=== PATIENT | female | born 1940 | race Caucasian/White ===

== ENCOUNTER 2022-03-10 08:54 | Emergency (ER) | payer MEDICARE, BC, SELFPAY ==
[2022-03-10 10:07] VITALS: BP 161/77; PULSE 68; RESP 18; TEMP 36.5; O2SAT 97; BMI 32.3
--- NOTE | 2022-03-10 10:15 | PC.NURSE ---
pt seen in triage room, was able to remove piece of ear tip easily, looked into ear with otoscope and unable to visualize any additional FB, TM clear and easily seen, pt denies any pain or feeling of FB, signs refusal and verbalizes that she does not need to see MD at this time, pt encouraged to return for further issues
--- NOTE | 2022-03-10 10:26 | ED_ITS ---
HPI - Ear Problem General Chief complaint: Unspecified Complaint, Adult Stated complaint: Hearing aid stuck in ear Time Seen by Provider: 03/10/22 10:09 Related Data Home Medications Medication Instructions Recorded Confirmed albuterol sulfate 90 mcg/actuation INHALATION 03/10/22 aerosol inhaler (Ventolin HFA) levothyroxine 125 mcg tablet mcg 03/10/22 (Synthroid) levothyroxine 137 mcg tablet mcg 03/10/22 (Synthroid) lisinopril 20 tab 03/10/22 mg-hydrochlorothiazide 25 mg tablet mometasone-formoterol HFA 100 INHALATION 03/10/22 mcg-5 mcg/actuation aerosol inhaler (Dulera) simvastatin 10 mg tablet mg 03/10/22 Allergies Allergy/AdvReac Type Severity Reaction Status Date / Time No Known Drug Allergies Allergy Verified 03/10/22 10:10 Exam Const: Vital Signs, click to edit/add: Vital Signs - 24 hr 03/10/22 10:07 Temperature 97.7 F Pulse Rate [Radial ] 68 Respiratory Rate 18 [facility] 161/77 H Pulse Oximetry 97 Course Vital Signs Vital signs: Initial Vital Signs Temperature 97.7 F 03/10/22 10:07 Temperature Source Temporal Artery Scan 03/10/22 10:07 Pulse Rate 68 03/10/22 10:07 Respiratory Rate 18 03/10/22 10:07 Blood Pressure 161/77 H 03/10/22 10:07 Blood Pressure Mean 105 03/10/22 10:07 Blood Pressure Position Sitting 03/10/22 10:07 Pulse Oximetry 97 03/10/22 10:07 Oxygen Delivery Method 03/10/22 10:07 Vital Signs Temperature 97.7 F 03/10/22 10:07 Pulse Rate 68 03/10/22 10:07 Respiratory Rate 18 03/10/22 10:07 Blood Pressure 161/77 H 03/10/22 10:07 Pulse Oximetry 97 03/10/22 10:07 Temperature 97.7 F 03/10/22 10:07 Pulse Rate 68 03/10/22 10:07 Respiratory Rate 18 03/10/22 10:07 Blood Pressure 161/77 H 03/10/22 10:07 Pulse Oximetry 97 03/10/22 10:07 Discharge Plan Discharge Clinical Impression: Foreign body Patient Disposition: Left Against Medical Advice Condition: Improved Additional Instructions: Patient was not seen by physician, only seen by nurse, decided not to be seen. Prescriptions: No Action levothyroxine [Synthroid] 137 mcg tablet 0RF Label Comments: TAKE 1 TABLET BY MOUTH EVERY OTHER DAY. ALTERNATE TAKING 125 MCG WITH 137 MCG EVERY OTHER DAY. simvastatin 10 mg tablet 0RF Label Comments: TAKE 1 TABLET BY MOUTH AT BEDTIME levothyroxine [Synthroid] 125 mcg tablet 0RF Label Comments: TAKE 1 TABLET BY MOUTH EVERY OTHER DAY ALTERNATE EVERY OTHER DAY WITH 137 MCG. lisinopril-hydrochlorothiazide 20-25 mg tablet 0RF Label Comments: TAKE 1 TABLET BY MOUTH ONCE DAILY albuterol sulfate [Ventolin HFA] 90 mcg/actuation HFA aerosol inhaler INHALATION 0RF Label Comments: INHALE 1 TO 2 PUFFS BY MOUTH EVERY 4 HOURS NEEDED FOR WHEEZING Dulera 100-5 mcg/actuation HFA aerosol inhaler INHALATION 0RF Label Comments: INHALE 2 PUFFS BY MOUTH TWICE DAILY. RINSE MOUTH/GARGLE AFTER EACH USE Follow Up/Referrals: Catherine Cardenas MD [Primary Care Provider] - Stand Alone Forms: Trulia Info Instructions
== END 2022-03-10 10:26 | disposition left against medical advice (07) ==
PROVIDERS: Emergency Provider Family Medicine; PCP Internal Medicine
DX: Z53.21 Procedure and treatment not carried out due to patient leaving prior to being seen by health care provider (principal)
CPT/HCPCS: 99281

== ENCOUNTER 2022-04-16 10:02 | Day surgery (SDC) | payer MEDICARE, BC, SELFPAY ==
[2022-04-16 10:13] VITALS: BP 198/94; PULSE 71; RESP 20; TEMP 36.2; O2SAT 98; BMI 32.1
--- NOTE | 2022-04-16 10:59 | ED.GENADULT ---
HPI - General Adult General Chief complaint: Laceration/Wound Stated complaint: Wound on RT knee needs to be checked Time Seen by Provider: 04/16/22 10:30 Source: patient Mode of arrival: ambulatory Limitations: no limitations History of Present Illness HPI narrative: 82-year-old female coming in today complaining of any injury. She fell about 25 days ago, and suffered a laceration to the anterior knee just distal to the patella. About 3 days after this occurred she went in to be seen. The wound has been healing by secondary intention since then has been doing fine. She did notice a increased odor in it about 9 days or so ago, she went into the urgent care and was placed on Keflex 500 mg p.o. b.i.d. for 7 days. Since then she has been doing fine however yesterday she noticed again and increased smell coming from the wound so she came in today to be evaluated. She denies any systemic symptoms. No knee pain. She does have an artificial knee on that side. Related Data Home Medications Medication Instructions Recorded Confirmed albuterol sulfate 90 mcg/actuation inhalation 03/10/22 04/04/22 aerosol inhaler (Ventolin HFA) mometasone-formoterol HFA 100 inhalation 03/10/22 04/04/22 mcg-5 mcg/actuation aerosol inhaler (Dulera) aspirin 81 mg capsule 81 mg PO QDAY 03/27/22 04/04/22 lactobacillus combination no.9 4 4,000 mmu cells PO QDAY 03/27/22 04/04/22 billion cell capsule (Adult 50 Plus Probiotic) levothyroxine 125 mcg tablet 125 mcg PO .every other day 03/27/22 04/04/22 (Synthroid) levothyroxine 137 mcg tablet 137 mcg PO .every other day 03/27/22 04/04/22 (Synthroid) lisinopril 20 1 tab PO QDAY 03/27/22 04/04/22 mg-hydrochlorothiazide 25 mg tablet vitamins A,C,R-ycro-qucamc 2,148 1 tab PO DAILY 03/27/22 04/04/22 mcg-113 mg-45 mg-17.4 mg tablet (PreserVision AREDS) Previous Rx's Medication Instructions Recorded simvastatin 10 mg tablet 10 mg PO QDAY #90 tabs 03/31/22 oxycodone-acetaminophen 5 mg-325 1 tab PO Q4-8H PRN pain #10 tabs 04/16/22 mg tablet (Percocet) Allergies Allergy/AdvReac Type Severity Reaction Status Date / Time No Known Drug Allergies Allergy Verified 04/01/22 12:02 Review of Systems Status of ROS: Reports: 10 or more systems reviewed and unremarkable except as noted in History and below [facility] Medical History History of DVT of lower extremity Surgical History History of laparoscopic appendectomy History of left breast biopsy History of total knee replacement Peritoneal abscess Social History Smoking Status: Former smoker Do you use any of these nicotine containing products: None Second hand tobacco smoke exposure: No Non-prescribed substance use: denies use Exam Narrative: Exam Narrative: Overweight, well-developed patient in no acute distress. Alert and oriented. Answers questions appropriately. Mood and affect are appropriate. Thoughts are goal oriented and rational. No tangential or magical thinking noted. Patient speaks in full sentences without needing to catch their breath. HEENT: Normocephalic atraumatic. Pupils are equally round reactive to light. Extraocular muscles are intact. Conjunctivae are moist without any icterus noted. Extremities: Patient has a 1.5 cm open wound just distal and lateral to the patella, lateral to the patellar tendon. Exploration of the wound with a Q-tip reveals that it is approximately an inch deep medially. It has a very strong odor, dark malodorous discharge present. Const: Vital Signs, click to edit/add: Vital Signs - 24 hr 04/16/22 10:13 Temperature 97.2 F L Pulse Rate [Right Pulse Oximeter] 71 Respiratory Rate 20 Blood Pressure [Le ft Upper Arm] 198/94 H Pulse Oximetry 98 Oxygen Delivery Me thod Room Air Course Course Hospital Course: Discussed case with orthopedic surgery. Reevaluation(s) Reevaluation #1: I do believe this patient needs a wound washout, orthopedic surgery in agreement. Patient will be admitted to same-day surgery for procedure. Vital Signs Vital signs: Initial Vital Signs Temperature 97.2 F L 04/16/22 10:13 Temperature Source Temporal Artery Scan 04/16/22 10:13 Pulse Rate 71 04/16/22 10:13 Respiratory Rate 20 04/16/22 10:13 Blood Pressure 198/94 H 04/16/22 10:13 Blood Pressure Mean 128 04/16/22 10:13 Blood Pressure Position Sitting 04/16/22 10:13 Pulse Oximetry 98 04/16/22 10:13 Oxygen Delivery Method 04/16/22 10:13 Vital Signs Temperature 97.2 F L 04/16/22 10:13 Pulse Rate 71 04/16/22 10:13 Respiratory Rate 20 04/16/22 10:13 Blood Pressure 198/94 H 04/16/22 10:13 Pulse Oximetry 98 04/16/22 10:13 Oxygen Delivery Method 04/16/22 10:13 Temperature 97.2 F L 04/16/22 10:13 Pulse Rate 71 04/16/22 10:13 Respiratory Rate 20 04/16/22 10:13 Blood Pressure 198/94 H 04/16/22 10:13 Pulse Oximetry 98 04/16/22 10:13 Oxygen Delivery Method 04/16/22 10:13 Medical Decision Making MDM Narrative Medical decision making narrative: Wound of the lower leg, just distal to the knee joint. Patient will will go to same-day surgery for a wound washout with orthopedic surgeon. Lab Data Labs: Lab Results 04/16/22 Range/Units 11:30 SARS-CoV-2 (PCR) Negative SARS-CoV-2 (Negative) Discharge Plan Discharge Clinical Impression: Open wound Condition: Stable Activity Detail: Weightbear as tolerated operative extremity Crutch or walker ambulation assistance as needed Straight leg raises daily; 1-2 sets of 10 reps Elevate operative extremity Remove dressing on postop day 3, or if saturated. If drainage still present, replace with new dry dressing. Ice to operative extremity: 20 minutes on, 20 minutes off-repeat while awake Tylenol and or ibuprofen variant as tolerated for pain Narcotics as needed for pain; a stool softener is recommended while taking narcotics (such as Senna-S) Discharge Diet: Regular
--- NOTE | 2022-04-16 11:24 | ED.NURSE ---
Dr Edward in to see pt.
--- NOTE | 2022-04-16 11:58 | P.ORCN_ITS ---
History of Present Illness HPI Date Seen: 04/16/22 Chief complaint: Wound on RT knee needs to be checked Narrative: 82-year-old female who walked into the emergency room today reports a right leg wound with drainage. This all started 25 days ago when she tripped and fell and scraped her right leg near the tibial tubercle level of the leg. It was a transverse/horizontal superficial laceration at the time. She had a picture on her phone she showed. The next day this developed a hematoma more so on the anterolateral portion of this proximal right leg. In the days to follow, she thought it got better over time. Unfortunately, a small wound then opened up. About 3 days after this occurred she went in to be seen.? The wound has been healing by secondary intention since then has been doing fine.? Fortunately, She did notice a increased odor in it about 9 days or so ago, she went into the urgent care and was placed on Keflex 500 mg p.o. b.i.d. for 7 days.? Since then she has been doing slightly better. However, yesterday she noticed again an increased foul oder coming from the wound so she came in today to be evaluated.? She denies any systemic symptoms.? No knee pain.? She does bilateral TKA (~1996). Of note, the left TKA sounds like it has some skin breakdown immediately postop that required some tissue manipulation. Otherwise, no devin infections about the knees reported. Review of Systems Narrative: No fevers or chills. No numbness or tingling. No chest pain shortness of breath. No blurred vision double vision headaches. No easy bleeding or bruising. No clotting disorders. She is not on any blood thinners. Mentation is intact. Remaining [facility] Medical History History of DVT of lower extremity Surgical History History of laparoscopic appendectomy History of left breast biopsy History of total knee replacement Peritoneal abscess Social History Smoking Status: Former smoker Do you use any of these nicotine containing products: None Second hand tobacco smoke exposure: No Non-prescribed substance use: denies use Meds Home Medications and Allergies Home Medications Medication Instructions Recorded Confirmed Type albuterol sulfate 90 mcg/actuation inhalation 03/10/22 04/04/22 History aerosol inhaler (Ventolin HFA) mometasone-formoterol HFA 100 inhalation 03/10/22 04/04/22 History mcg-5 mcg/actuation aerosol inhaler (Dulera) aspirin 81 mg capsule 81 mg PO QDAY 03/27/22 04/04/22 History lactobacillus combination no.9 4 4,000 mmu cells PO QDAY 03/27/22 04/04/22 History billion cell capsule (Adult 50 Plus Probiotic) levothyroxine 125 mcg tablet 125 mcg PO .every other day 03/27/22 04/04/22 History (Synthroid) levothyroxine 137 mcg tablet 137 mcg PO .every other day 03/27/22 04/04/22 History (Synthroid) lisinopril 20 1 tab PO QDAY 03/27/22 04/04/22 History mg-hydrochlorothiazide 25 mg tablet vitamins A,C,H-ozgd-orkwoj 2,148 1 tab PO DAILY 03/27/22 04/04/22 History mcg-113 mg-45 mg-17.4 mg tablet (PreserVision AREDS) Allergies Allergy/AdvReac Type Severity Reaction Status Date / Time No Known Drug Allergies Allergy Verified 04/01/22 12:02 Ortho Exam Narrative Exam Narrative: Well-developed, well-nourished, 82-year-old female in no acute distress. She is obese showing a BMI of 32.1 based on the metrics of this electronic medical chart. She is cooperative with the exam today. Interactive. Provides the history. Exam the right leg shows no erythema or induration or effusions about the knee itself. There is some mild erythema around the anterolateral proximal leg. This is roughly at the level of the tibial tubercle or just slightly distal. There is evidence of a transverse healed scar likely related to the scraped that she describes from the fall 25 days ago. However there is a 1.5 cm ovoid shaped opening/hole on the anterolateral proximal leg at this level. There is active drainage. Mild foul odor to it today. The drainage is serous in nature with slight cloudy appearance. 2+ edema to the proximal leg on this right side. Only 1+ on the contralateral leg. Palpable DP and PT pulse. Neurologic intact all 5 dermatomes/myotomes right lower extremity otherwise. Able to do an active straight leg raise without pain. Knee ROM shows 0-105 degrees at least pain-free. Is there is some tenderness palpation around the wound. Const Vital Signs, click to edit/add: Vital Signs - 24 hr 04/16/22 10:13 Temperature 97.2 F L Pulse Rate [Right Pulse Oximeter] 71 Respiratory Rate 20 Blood Pressure [Left Upper Arm] 198/94 H Pulse Oximetry 98 Oxygen Delivery Method Room Air Results Diagnostic results Additional Comments: No radiographs are available for review at this time. Assessment and Plan Assessment and plan (1) Open wound: Status: Acute (2) Status post bilateral knee replacements: Status: Acute Plan At this time, the open wound is concerning for a superficial infection. It is likely that she has a component of an abscess however given the purulence and foul odor. The concern is primarily related to the right TKA implants that she has. This puts her at increased risk for septic arthritis cord in the. I think it is important to obtain tissue and cultures of the wound. They may come back. The negative due to the Keflex/antibiotics that she has been on. He also might come back positive as the skin tenzin may simply be what is swabbed. However, I think a thorough debridement is also prudent. We discussed the risks, benefits, and alternatives. She, and her daughter state understanding. I do think this is ascencio to do sooner than later. Thus, as she has only drank some coffee early this morning, I think it is reasonable to do this time. I have communicated with our anesthesia team as well as the operating crew. We will plan for this irrigation and debridement momentarily. Following the procedure, I do think that she will be able to go home. Weightbear as tolerated. Range of motion as tolerated. I would encourage Jay hose stockings/compressive stockings. And finally, I would offer her 7 days of Bactrim. I think this antibiotic will be able to more broad-spectrum then Keflex helping cover possible MRSA. It will also be easier to take just twice a day rather than the prescribed 4 times a day it should be used for Keflex. Thank you for allowing me to participate in care of this patient today.
[2022-04-16 12:10] LABS: SARS PCR* Negative SARS-CoV-2 (Negative)
[2022-04-16] MEDS: LACTATED RINGERS 1000 ML 1,000 ML 100 ML IV (12:19)
[2022-04-16] MEDS: BUPIVACAINE 0.5 % 10 ML VIAL INJECTION (13:11)
--- NOTE | 2022-04-16 13:27 | P.ORPRC_ITS ---
Procedure Note Date of procedure: 04/16/22 Procedure: PREOPERATIVE DIAGNOSIS: 1. Right anterior proximal leg traumatic wound 2. Status post right TKA (approximately 1996) POSTOPERATIVE DIAGNOSIS: 1. Right anterior proximal leg traumatic wound. Measurements of open wound are 1.5 x 2.5 x 1.5 (wide, long, deep). The tunneling/undermining tracks a total of 8 cm toward the midline of the knee PROCEDURE: 1. Right anterolateral proximal leg traumatic wound irrigation and debridement including debridement of subcutaneous tissue. 2. Application of negative pressure dressing/wound VAC with sponge placed in the undermining/tunneling portion. Sponge involved proximally 7 x 1.5 x 2.5 cm SURGEON: Jason Rodriguez MD. HEALTH DIAGNOSTICS TEACHER: Alysha Gallardo PA-C - Of note, an property management assistant was critical for this case to aid in patient positioning, tissue retraction, limb manipulation/positioning, and closure. ANESTHESIA: Mac + local anesthetic (50:50 mixture of 1% lidocaine with epinephrine and 0.5% Marcaine plain)-15 mL total local anesthetic IMPLANTS: None TOURNIQUET: None COMPLICATIONS: None evident INDICATIONS: The patient is a pleasant 82-year-old female who tripped from a standing height and scraped the anterior portion of her proximal leg near the level of the tibial tubercle. The following day she developed a hematoma deep to this portion. In the coming weeks, there was a small cavitary lesion that the informed of the anterolateral proximal leg. She was seen in prescribed oral Keflex b.i.d.. This seemed to help a little bit, but once that stopped, the wound persisted and now had drainage with a foul odor. She presented [facility] today. Orthopedics is consulted to assist with management. Upon my evaluation, given the fact that she also has a history of a TKA open his proximally 1996) on this side, there was concern for this tracking deep and possibly into the joint. While physical exam did not have pain around the joint nor effusion, of course this could be early penetration into the joint. Thus, surgery was indicated to debride wound, obtain cultures, and evaluate the depths of the wound. DESCRIPTION OF PROCEDURE: Following a thorough discussion of risks, benefits, and alternatives consent was obtained and the operative extremity was marked. The patient was brought to the operating room and placed supine on the operating table. No antibiotics were administered initially as we wanted to obtain cultures. Thus, after proper time-out including proper patient, site, procedure, sterile ChloraPre prep was performed. Upper extremity was prepped and draped in appropriate sterile fashion. Initially, a Ray-Rachelle allowed us to debride the superficial layers in the wound. I then used a culture and found that this tracked more towards the midline anteriorly. This culture swab was sent for aerobic and anaerobic cultures. Beyond that, the wound continued debridement with a curette of the subcutaneous tissue. Ray-Rachelle was also utilized to help mechanically debride the deep surface. We found the measurements of the depth of tunneling/tracking is noted. Thorough irrigation normal saline was performed. Curette again was performed followed by suction and again thorough irrigation. 3 L normal saline was performed through this small opening. At this stage, given the tunneling and the drainage, it was felt that a wound VAC for home use would be prudent. Thus, the wound VAC sponge was inserted into the tunneling portion approximately 2/3-3/4 the depth, and the seal completed. The VAC via device was utilized for the patient's home use. She was woken from anesthesia and transferred to the recovery room stable condition. PLAN: 1. Encourage elevation of the operative extremity. 2. Range of motion of the operative extremity/digits as tolerated. 3. Ibuprofen, acetaminophen and/or Percocet as needed for pain. 4. Follow up with me on 04/18/2022. VAC and wound check. Possible return to operating room the following day on 04/19/2022. 5. We have prescribed oral Bactrim DS and ciprofloxacin. Both should be taken b.i.d. x7 days.
[2022-04-16 13:29] VITALS: BP 102/39; PULSE 91; RESP 16; TEMP 35.7; O2SAT 96
--- NOTE | 2022-04-16 13:35 | W.ANESCHARGE ---
Anesthesia Charges Start Date/Time Anesthesia Start Date: 04/16/22 Anesthesia Start Time: 12:39 Stop Date/Time Anesthesia Stop Date: 04/16/22 Anesthesia Stop Time: 13:32 Summary Emergency: Yes Extremes of Age: Over 71-CPT 76504
[2022-04-16 13:45] VITALS: BP 98/45; PULSE 90; RESP 16; O2SAT 95
[2022-04-16 14:00] VITALS: BP 114/56; PULSE 93; RESP 18; TEMP 35.9; O2SAT 96
[2022-04-16 14:15] VITALS: BP 106/55; PULSE 90; RESP 16; O2SAT 94
[2022-04-16 14:30] VITALS: BP 105/65; PULSE 92; RESP 16; TEMP 36.2; O2SAT 94
== END 2022-04-16 15:00 | disposition home or self-care (01) ==
LOC: ED 11:11 → SS 11:59
PROVIDERS: Emergency Provider Family Medicine; PCP Internal Medicine; Visit Provider Orthopaedic Surgery Sports Medicine
PROC: (CPT 10061; principal; 2022-04-16 12:35)
DX: S81.001A Unspecified open wound, right knee, initial encounter (principal); S80.01XA Contusion of right knee, initial encounter; L02.415 Cutaneous abscess of right lower limb; W01.0XXA Fall on same level from slipping, tripping and stumbling without subsequent striking against object, initial encounter; Z96.653 Presence of artificial knee joint, bilateral
CPT/HCPCS: 10061; 97605; 400; 87186; 87205; 87635; 99100; 99140; 99283; J0360; J1100; J1885; J2405; J2704; J3010; J3490; J7120; S0020

== ENCOUNTER 2022-04-19 05:54 | Day surgery (SDC) | payer MEDICARE, BC, SELFPAY ==
[2022-04-19 06:18] VITALS: BMI 35.4
[2022-04-19 06:44] VITALS: BP 133/66; PULSE 76; RESP 18; TEMP 36.7; O2SAT 94
[2022-04-19] MEDS: LACTATED RINGERS 1000 ML 1,000 ML 100 ML IV ×2 (07:13→08:03)
[2022-04-19] MEDS: SODIUM CHLORIDE 0.9 % (FLUSH) 10 ML SYRINGE IVF (07:14)
[2022-04-19] MEDS: BUPIVACAINE 0.5% 30 ML 10 ML INJECTION (07:31)
[2022-04-19 07:52] VITALS: BP 92/37; PULSE 74; RESP 16; TEMP 36.3; O2SAT 98
--- NOTE | 2022-04-19 07:52 | PM.ORPRC ---
Procedure Note Date of procedure: 04/19/22 Procedure: PREOPERATIVE DIAGNOSIS:? 1.? Right anterior proximal leg traumatic wound 2. Right anterolateral proximal leg retained wound VAC 3.? Status post right TKA (approximately 1996) POSTOPERATIVE DIAGNOSIS: 1.? Right anterior proximal leg traumatic wound (wound now measures 1 x 1 x 2 cm (wide, long, deep, respectively). Tunneling/undermining now tracks a total of 3 cm toward the midline of the knee 2. Right anterolateral proximal leg retained wound VAC 3.? Status post right TKA (approximately 1996) PROCEDURE: 1.? Right anterolateral proximal leg traumatic wound irrigation and excisional debridement including debridement of skin and subcutaneous tissue.? 2.? Application of negative pressure dressing/wound VAC with sponge placed in the undermining/tunneling portion.? Sponge involved proximally 3 x 1 x 2cm for SURGEON: ? Jason Rodriguez MD. COMPUTER TECHNOLOGY TEACHER:? Isaias DICKINSON- Of note, an payroll administrative assistant was critical for this case to aid in patient positioning, tissue retraction, limb manipulation/positioning, and closure. ANESTHESIA:? Mac + local anesthetic (50:50 mixture of 1% lidocaine with epinephrine and 0.5% Marcaine plain)-20 mL total local anesthetic IMPLANTS:? None TOURNIQUET:? None COMPLICATIONS:? None evident INDICATIONS:? The patient is a pleasant 82-year-old female who tripped from a standing height and scraped the anterior portion of her proximal leg near the level of the tibial tubercle.? The following day she developed a hematoma deep to this portion.? She was brought to the operating room [id number]. Here the wound was initially debrided and deep abscess drained. Wound VAC was applied. There was significant tunneling underneath the skin. Now, the tunneling is substantially decreased yet the wound still remains to have a slight tunneling. Thus, surgery was indicated to debride wound and evaluate the depths of the wound.? DESCRIPTION OF PROCEDURE:? Following a thorough discussion of risks, benefits, and alternatives consent was obtained and the operative extremity was marked.? The patient was brought to the operating room and placed supine on the operating table.? 2 g IV Ancef were administered within 1 hour incision preoperatively.? Thus, after proper time-out including proper patient, site, procedure, sterile ChloraPre prep was performed.? Upper extremity was prepped and draped in appropriate sterile fashion using ChloraPrep. Initially, a Ray-Rachelle allowed us to debride the superficial layers in the wound. Beyond that, the wound continued debridement with a curette of the skin and subcutaneous tissue.? Ray-Rachelle was also utilized to help mechanically debride the deep surface.? We found the measurements of the depth of tunneling/tracking is noted.? Thorough irrigation normal saline was performed.? Curette again was performed followed by suction and again thorough irrigation.? 3 L normal saline was performed through this small opening. At this stage, given the tunneling and the drainage, it was felt that a wound VAC for home use would still be prudent.? Thus, the wound VAC sponge was inserted into the tunneling portion approximately 2/3-3/4 the depth, and the seal completed.? The VAC via device was utilized for the patient's home use.? She was awoken from anesthesia and transferred to the recovery room stable condition. PLAN:? 1.? Encourage elevation of the operative extremity. 2.? Range of motion of the operative extremity/digits as tolerated. 3.? Ibuprofen, acetaminophen and/or Percocet as needed for pain. 4.? Follow up PA visit 04/20/2022 for wound VAC sponge change.? She is scheduled to be in the wound clinic next week, 04/26/2022 5. We have prescribed oral Bactrim DS and ciprofloxacin.? Both should be taken b.i.d. x7 days. Complete this prescription.
--- NOTE | 2022-04-19 07:54 | W.ANESCHARGE ---
Anesthesia Charges Start Date/Time Anesthesia Start Date: 04/19/22 Anesthesia Start Time: 07:15 Stop Date/Time Anesthesia Stop Date: 04/19/22 Anesthesia Stop Time: 07:52 Summary Emergency: No Extremes of Age: Over 71-CPT 23382
[2022-04-19 08:15] VITALS: BP 87/62; RESP 16; O2SAT 99
[2022-04-19 08:30] VITALS: BP 125/65; PULSE 74; RESP 16; TEMP 36.6; O2SAT 96
[2022-04-19 09:00] VITALS: BP 120/62; PULSE 74; RESP 16; O2SAT 97
--- NOTE | 2022-04-19 17:12 | SUR.OPER ---
PATIENT QUESTIONS ANSWERED SATISFACTORILY PREOPERATIVELY.? PATIENT BROUGHT TO OR #2 PER CART.? Patient positioned supine on OR #2 bed.?The perioperative?team supported arms bilaterally on arm boards.? Final approval of positioning by surgeon.?
== END 2022-04-19 09:21 | disposition home or self-care (01) ==
PROVIDERS: PCP Internal Medicine; Visit Provider Orthopaedic Surgery Sports Medicine
PROC: (CPT 11042; principal; 2022-04-19 07:15)
DX: S80.01XA Contusion of right knee, initial encounter (principal); S89.81XA Other specified injuries of right lower leg, initial encounter
CPT/HCPCS: 11042; 97606; 00400; 99100; J1100; J2405; J2704; J3010; J3490; J7120

== ENCOUNTER 2022-04-21 14:45 | Outpatient (CLI) | payer MEDICARE, BC, SELFPAY | END 2022-04-21 14:46 | disposition home or self-care (01) | PROVIDERS: PCP Internal Medicine; Visit Provider Nurse Practitioner Family | DX: S80.11XA Contusion of right lower leg, initial encounter (principal); W01.0XXA Fall on same level from slipping, tripping and stumbling without subsequent striking against object, initial encounter; I87.311 Chronic venous hypertension (idiopathic) with ulcer of right lower extremity; L97.809 Non-pressure chronic ulcer of other part of unspecified lower leg with unspecified severity; I87.2 Venous insufficiency (chronic) (peripheral) | CPT/HCPCS: 11042; 99212 ==

== ENCOUNTER 2022-04-25 14:43 | Outpatient (CLI) | payer MEDICARE, BC, SELFPAY | END 2022-04-25 14:44 | disposition home or self-care (01) | LOC: WOUND 14:44 | PROVIDERS: PCP Internal Medicine; Visit Provider Nurse Practitioner Family | DX: S80.11XA Contusion of right lower leg, initial encounter (principal); I87.2 Venous insufficiency (chronic) (peripheral); L97.819 Non-pressure chronic ulcer of other part of right lower leg with unspecified severity | CPT/HCPCS: 11042 ==

== ENCOUNTER 2022-05-02 11:30 | Outpatient (CLI) | payer MEDICARE, BC, SELFPAY | END 2022-05-02 11:31 | disposition home or self-care (01) | LOC: WOUND 11:30 | PROVIDERS: PCP Internal Medicine; Visit Provider Nurse Practitioner Family | DX: S80.11XA Contusion of right lower leg, initial encounter (principal); I87.2 Venous insufficiency (chronic) (peripheral) | CPT/HCPCS: 11042 ==

== ENCOUNTER 2022-05-09 13:07 | Outpatient (CLI) | payer MEDICARE, BC, SELFPAY | END 2022-05-09 13:08 | disposition home or self-care (01) | PROVIDERS: PCP Internal Medicine; Visit Provider Nurse Practitioner Family | DX: S80.11XA Contusion of right lower leg, initial encounter (principal); I87.2 Venous insufficiency (chronic) (peripheral); L97.819 Non-pressure chronic ulcer of other part of right lower leg with unspecified severity | CPT/HCPCS: 11042 ==

== ENCOUNTER 2022-05-16 11:15 | Outpatient (CLI) | payer MEDICARE, BC, SELFPAY | END 2022-05-16 11:16 | disposition home or self-care (01) | LOC: WOUND 11:15 | PROVIDERS: PCP Internal Medicine; Visit Provider Nurse Practitioner Family | DX: S80.11XA Contusion of right lower leg, initial encounter (principal); I87.2 Venous insufficiency (chronic) (peripheral) | CPT/HCPCS: 11042 ==

== ENCOUNTER 2022-05-23 11:12 | Outpatient (CLI) | payer MEDICARE, BC, SELFPAY | END 2022-05-23 11:13 | disposition home or self-care (01) | LOC: WOUND 11:13 | PROVIDERS: PCP Internal Medicine; Visit Provider Nurse Practitioner Family | DX: S80.11XA Contusion of right lower leg, initial encounter (principal); I87.2 Venous insufficiency (chronic) (peripheral) | CPT/HCPCS: 11042 ==

== ENCOUNTER 2022-06-06 11:23 | Outpatient (CLI) | payer MEDICARE, BC, SELFPAY | END 2022-06-06 11:24 | disposition home or self-care (01) | PROVIDERS: PCP Internal Medicine; Visit Provider Nurse Practitioner Family | DX: S80.11XA Contusion of right lower leg, initial encounter (principal); I87.2 Venous insufficiency (chronic) (peripheral) | CPT/HCPCS: 99212 ==

== ENCOUNTER 2022-08-24 14:21 | Outpatient (CLI) | payer MEDICARE, BC, SELFPAY ==
[2022-08-24 12:58] LABS: Chloride* 105 mmol/L (96-114); Sodium* 138 mmol/L (135-149)
[2022-08-24 13:00] LABS: Cholesterol* 190 mg/dL (90-199); Creatinine* 0.5 mg/dL (0.5-1.5); Estimated Glomerular Filt Rate 94 ml/min
[2022-08-24 13:01] LABS: Blood Urea Nitrogen* 15 mg/dL (7-30); Calcium* 9.8 mg/dL (8.4-10.6); Carbon Dioxide* 28 mmol/L (20-32); Glucose* 110 mg/dL (60-115); HDL Cholesterol* 88 mg/dL (>=50); LDL Cholesterol Calculated 87 mg/dL (<100); Triglycerides* 76 mg/dL (40-149)
== END 2022-08-24 14:22 | disposition home or self-care (01) ==
PROVIDERS: PCP Internal Medicine; Visit Provider Internal Medicine
DX: I10 Essential (primary) hypertension (principal); E78.5 Hyperlipidemia, unspecified; E03.9 Hypothyroidism, unspecified
CPT/HCPCS: 80048; 80061; 84443

== ENCOUNTER 2023-09-13 11:25 | Outpatient (CLI) | payer MEDICARE, BC, SELFPAY ==
--- OUTSIDE RECORDS SUMMARY | 2023-09-13 11:33 | XMS_ITS | Continuity of Care Document ---
Author Name Unknown Organization [facility] Address [address] [place] [address] Phone Care Team Providers Care Beauty Parlor Cleaner Name Role Phone RN, RN Unavailable Unavailable [...] Ju Inj Anes Facet Jt; Lumb/sac-3rd Level Inj Anes Facet Jt; Lumb/sac-1st Level Inj Anes Facet Jt; Lumb/sac-2nd Level Ju Inj Anes Facet Jt; Lumb/sac-3rd Level Inj Anes Facet Jt; Lumb/sac-1st Level Inj Anes Facet Jt; Lumb/sac-2nd Level Inj Anes Facet Jt; Lumb/sac-3rd Level Marcaine 30ml Lo Osm Contr Mat (200-249mg) Advance Directives Directive Yes / No Effective Date File Name No Information Encounters Encounter Description Practice Location Reason(s) For Visit Diagnoses Date Provider Providers Copied on Encounter [facility], [address], [place], [id number], tel:[phone] [facility] No Information RN RN. [address], [address], [place], [place], [address], [place]. tel:[phone] Referring Provider: Vlad SORENSON R, [address], [place], [address] . tel:[phone] [facility], [address], [place], [address], tel:[phone] [facility] No Information Dario Roth. [address], [place], [place], [address], [place]. tel:[phone] Referring Provider: Vlad SORENSON R, [address], [place], [address] . tel:[phone] [facility], [address], [place], [place], [address], [place] tel:[phone] [facility] No Information RN RN. [address], [facility] [place], [address], [place]. tel:[phone] Referring Provider: Vlad SORENSON R, [address], [facility] [place], [address] . tel:[phone] [facility], [address], [place], [place], [address], [place] tel:[phone] [facility] No Information Dario Roth. [address], [place], [place], [address], [place]. tel:[phone] Referring Provider: Vlad SORENSON R, [address], [place], [address] . tel:[phone] [facility], [address], [place], [address], [place] tel:[phone] [facility] No Information Dario Roth. [address], [place], [place], [address], [place]. tel:[phone] Referring Provider: Vlad SORENSON R, [address], [place], [address] . tel:[phone] [facility], [address], [place], [place], [address], [place] tel:[phone] [facility] No Information Dario Roth. [address], [place], [place], [address], [place]. tel:[phone] Referring Provider: Vlad SORENSON R, [address], [place], [address] . tel:[phone] Family History Family Member Type Diagnosis Age At Onset No Information Payers Payer name Insurance type Covered alliance party ID Authorjohnny huerta(s) Devon BUCK [id number] Social History Type Description Quantity Date Captured [...]
== END 2023-09-13 11:26 | disposition home or self-care (01) ==
PROVIDERS: PCP Internal Medicine; Visit Provider Internal Medicine
DX: E03.9 Hypothyroidism, unspecified (principal); E78.5 Hyperlipidemia, unspecified; I10 Essential (primary) hypertension
CPT/HCPCS: 80048; 80061; 84443

== ENCOUNTER 2024-08-12 12:30 | Outpatient (RCR) | payer MEDICARE, BC, SELFPAY ==
--- NOTE | 2024-05-28 14:42 | PT.OPE ---
PT [facility] Outpatient Eval PT [facility] Outpatient Eval Start: 05/28/24 14:26 Freq: Status: Active Protocol: Document 05/28/24 14:26 LEIGH (Rec: 05/28/24 14:39 [facility] [id number]) E-signed By Nathaniel Thornton, PT, ATC Physical Therapy Outpatient Evaluation Insurance Information Insurance Name Medicare B Medical Diagnosis M54.50 low back pain, unspecified M48.00 spinal stenosis, Treating Diagnosis low back pain, right Referring Catherine Oconnor MD Subjective Subjective Edwige is an 85 year old who has experienced lower back discomfort x 2 years. Feels the symptoms have worsened lately making standing and walking more difficult. She ultimately fears falling. She says her standing duration is <5 min.s while walking is <10 min.s unless she has something to lean upon (walker, shopping cart) or contact guard assist with someone next to her. Sitting always takes her back pain away. She denies an LE weakness, paresthesia or loss of sensation. Pain Comments 02/19 worst Date of Last Physician Visit 05/22/24 Current Work Status Retired Precautions Therapy Limitations/Systems Review Not Limited Objective Range of Motion Trunk ROM WNL's, no lbp produced with any motion. Hip flexor and quadricep muscle tightness and flexibility deficits exist bilaterally. Strength LE R and L: 5/5 for all joints and their respective patterns . Palpation Mild tenderness along the lumbar paraspinal muscles and R SI joint. Balance & Gait Walks using obvious caution, absent UE swing or trunk rotation. Posture Stands with in a forward flexed position with increased lumbar lordosis. Sensation/Reflexes Diminished bilaterally through patella and achilles tendons. Assessment Assessment/Impression Edwige is a very pleasant woman experiencing lower back symptoms attributed to degeneration-stenosis. Associated factors include trunk/abdominal weakness, hip weakness and tight iliopsoas and quadricep musculature. She would benefit from skilled PT for exercise program development, passive stretching, [id number] strengthening and guidance with assistive device selection and usage. I have also suggested she purchase a lumbar support to be used with all upright positions. Primary Functional Limitations standing walking ADL's Plan of Care Rehabilitation Potential Good Physical Therapy Goals 1.Independent performance with HEP for stretching and strengthening. 2.Improve standing duration to 10 min.s while preparing meals. 3.To walk x 15 min.s without assistive device without limiting lbp. 4.Improve flexibility-soft tissue stretch in both hip flexor and quad muscle groups. Coordination/Communication With Referral Source Treatment Plan/Direct Interventions Gait Training,Manual Therapy, Orthotics/Braces,Self-Care/ Home Management,Therapeutic Activities,Therapeutic Exercises Frequency/Duration 1-2x per week 6-12 weeks Patient Will Be Discharged From Therapy Independent w/HEP, Independently Progressing Evaluation Billing Untimed Code Treatment Minutes 30 PT Eval No Charge No Complexity Low Certification Information Initial Certification Date 05/28/24 Ending Certification Date 08/28/24 Provider Signature Required Yes Provider Signature Shows Agreement With POC & Medical Necessity Physician NPI Number Write NPI# Here Physician Comment/Change : Physician Signature & Date Requested Please Sign/Date Here
== END 2024-08-12 13:30 | disposition home or self-care (01) ==
PROVIDERS: PCP Internal Medicine; Visit Provider Internal Medicine
DX: M54.50 Low back pain, unspecified (principal); M48.00 Spinal stenosis, site unspecified; Z51.89 Encounter for other specified aftercare
CPT/HCPCS: 97110; 97140; 97161

== ENCOUNTER 2024-09-23 10:44 | Outpatient (CLI) | payer MEDICARE, BC, SELFPAY | END 2024-09-23 10:45 | disposition home or self-care (01) | PROVIDERS: PCP Internal Medicine; Visit Provider Internal Medicine | DX: E78.5 Hyperlipidemia, unspecified (principal); E03.9 Hypothyroidism, unspecified; I10 Essential (primary) hypertension | CPT/HCPCS: 80048; 80061; 84443 ==

== ENCOUNTER 2025-02-17 10:15 | Outpatient (RCR) | payer MEDICARE, BC, SELFPAY | END 2025-06-17 23:59 | disposition home or self-care (01) | PROVIDERS: PCP Internal Medicine; Visit Provider Family Medicine | DX: M47.816 Spondylosis without myelopathy or radiculopathy, lumbar region (principal); Z51.89 Encounter for other specified aftercare | CPT/HCPCS: 97110; 97140; 97161 ==

== ENCOUNTER 2025-05-22 22:01 | Emergency (ER) | payer MEDICARE, BC, SELFPAY ==
--- OUTSIDE RECORDS SUMMARY | 2013-04-22 08:57 | XMS_ITS | Continuity of Care Document ---
Author Organization [facility] Address [address] [place] [address] Phone Care Team Providers Care Workers Compensation Consultant Name Role Phone RN, RN Unavailable Unavailable Allergies, Adverse Reactions, Alerts Substance Reaction Status Criticality No Known allergies Medications Medication Instructions Dosage Effective Dates (start - stop) Status Comments amlodipine 2.5 mg tablet take 1 tablet by oral route every day 2.5 MG - Active Os-Param 500 + D 500 mg (1,250 mg)-200 unit tablet take 1 Tablet by Oral route every day 1 Tablet - Active Vitamin D3 1,000 unit capsule take 1 Capsule by Oral route every day 1 Capsule - Active Levoxyl 150 mcg tablet take 1 tablet by oral route every day 150 MCG - Active lisinopril-hydrochl orothiazide 20 mg-25 mg tablet take 1 tablet by oral route every day 1.00 tablet - Active mometasone-formoter ol HFA 100 mcg-5 mcg/actuation Aerosol Inhaler inhale 2 puff by inhalation route 2 times every day in the morning and evening 2.00 puff - Active Zocor 10 mg tablet take 1 tablet by ora l route every day in the evening 10 MG - Active Procedures Procedure Date RF Lumbar/Sacral Single Level 3 RF Lumbar/Sacral Addtl Level Mod cs by same phys, 5 yrs + Lactate Ringers 1000 Inj Anes Facet Jt; Lumb/sac-1st Level Ju Inj Anes Facet Jt; Lumb/sac-2nd Level Ju Inj Anes Facet Jt; Lumb/sac-3rd Level Ju Inj Anes Facet Jt; Lumb/sac-1st Level Ju Inj Anes Facet Jt; Lumb/sac-2nd Level Ju Inj Anes Facet Jt; Lumb/sac-3rd Level Ju Inj Anes Facet Jt; Lumb/sac-1st Level Ju Inj Anes Facet Jt; Lumb/sac-2nd Level Inj Anes Facet Jt; Lumb/sac-3rd Level Marcaine 30ml Lo Osm Contr Mat (200-249mg) Advance Directives Directive Yes / No Effective Date File Name No Information Encounters Encounter Description Practice Location Reason(s) For Visit Diagnoses Date Provider Providers Copied on Encounter [facility], [address], [place], [place], [id number], tel:[phone] [facility] No Information RN RN. [address], [place], [place], [address], [place]. tel:[phone] Referring Provider: Vlad Adan, [address], [place], [address] . tel:[phone] [facility], [address], [place], [place], [address], tel:[phone] [facility] No Information Dario Roth. [address], [place], [place], [address], [place]. tel:[phone] Referring Provider: Vlad Adan, [address], [place], [address] . tel:[phone] [facility], [address], [place], [place], [address], [place] tel:[phone] [facility] No Information RN RN. [address], [facility] [place], [address], [place]. tel:[phone] Referring Provider: Vlad SORENSON R, [address], [place], [address] . tel:[phone] [facility], [address], [place], [place], [address], [place] tel:[phone] [facility] No Information Dario Roth. [address], [place], [place], [address], [place]. tel:[phone] Referring Provider: Vlad SORENSON R, [address], [facility], [address] . tel:[phone] [facility], [address], [place], [address], [place] tel:[phone] [facility] No Information Dario Roth. [address], [place], [place], [address], [place]. tel:[phone] Referring Provider: Vlad SORENSON R, [address], [place], [address] . tel:[phone] [facility], [address], [place], [place], [address], [place] tel:[phone] [facility] No Information Dario Roth. [address], [place], [place], [address], [place]. tel:[phone] Referring Provider: Vlad SORENSON R, [address], [place], [address] . tel:[phone] Family History Family Member Type Diagnosis Age At Onset No Information Payers Payer name Insurance type Covered republican ID Authorjohnny huerta(s) Devon BUCK [id number] Social History Type Description Quantity Date Captured Comments Sex Female Smoking Status No Information Chief Complaint And Reason For Visit No Information Reason For Referral Reason For Referral No Information History Of Present Illness Encounter Date Complaint History Of Prese nt Illness No Information Functional Status Date Functional Assessmen t No Information Instructions Date Instruction Additional Infor mation No Information Assessments Type Assessment Date No Information Patient Care Teams Name Effective Dates (start - stop) Status Members No Information
[2025-05-22 22:07] VITALS: BP 189/90; PULSE 90; RESP 20; TEMP 36.7; O2SAT 92; BMI 32.8
--- NOTE | 2025-05-22 22:15 | ED.WOUNDLAC ---
HPI - Wound/Laceration General Time Seen by Provider: 22:15 Date Seen: 05/22/25 Chief Complaint: Laceration/Wound Stated Complaint: right leg lac Time Seen by Provider: 05/22/25 22:15 Source: patient, family and RN notes reviewed Mode of arrival: ambulatory Limitations: no limitations History of Present Illness HPI narrative: This 85-year-old female is coming in accompanied by her son for concern of a laceration that happened on her right lower extremity at about 6:00 p.m.. She bandaged it but showed her son later who thought it should be sutured or at least evaluated. We have looked up her tetanus, is up-to-date. This happened when the wind caught the door and the door slammed into her calf. She is not on blood thinners, she has some mild pain. No other injuries happened at the time. She did not fall. Patient tetanus UTD: Yes (08/22/2022) Related Data Home Medications ?Medication ?Instructions ?Recorded ?Confirmed aspirin 81 mg capsule 81 mg PO QDAY 03/27/22 09/23/24 lactobacillus combination no.9 4 4,000 mmu cells PO QDAY 03/27/22 09/23/24 billion cell capsule (Adult 50 Plus Probiotic) vitamins A,C,T-lsne-ptpwvq 2,148 1 tab PO DAILY 03/27/22 09/23/24 mcg-113 mg-45 mg-17.4 mg tablet (PreserVision AREDS) albuterol sulfate 90 mcg/actuation 1 puff inhalation Q6-8H PRN 09/11/22 09/23/24 aerosol inhaler (Ventolin HFA) mometasone-formoterol HFA 100 2 puff inhalation BID 09/11/22 09/23/24 mcg-5 mcg/actuation aerosol inhaler (Dulera) diphenhydramine 25 1 tab PO QHS PRN 06/05/23 09/23/24 mg-acetaminophen 500 mg tablet (Tylenol PM Extra Strength) zinc acetate 1 cap PO DAILY 09/13/23 09/23/24 Previous Rx's ?Medication ?Instructions ?Recorded lisinopril 20 1 tab PO QDAY #90 tabs 09/23/24 mg-hydrochlorothiazide 25 mg tablet levothyroxine 125 mcg tablet 125 mcg PO .every other day #45 10/21/24 (Synthroid) tabs levothyroxine 137 mcg tablet 137 mcg PO .every other day #45 10/21/24 (Synthroid) tabs simvastatin 10 mg tablet 10 mg PO QDAY #90 tabs 10/21/24 Allergies Allergy/AdvReac Type Severity Reaction Status Date / Time No Known Drug Allergies Allergy Verified 09/23/24 10:06 Review of Systems Narrative: As per HPI. [facility] Medical History History of DVT of lower extremity ?Z86.718 - Personal history of other venous thrombosis and embolism (ICD-10) Surgical History History of drainage of abscess ?Z98.890 - Other specified postprocedural states (ICD-10) History of tonsillectomy ?Z90.89 - Acquired absence of other organs (ICD-10) History of wound infection ?Z86.19 - Personal history of other infectious and parasitic diseases (ICD-10) History of left breast biopsy ?Z98.890 - Other specified postprocedural states (ICD-10) History of total knee replacement ?Z96.659 - Presence of unspecified artificial knee joint (ICD-10) History of laparoscopic appendectomy ?Z90.49 - Acquired absence of other specified parts of digestive tract (ICD-10) Family History Sister Ovarian cancer Social History What is your current living situation?: I presently have a place to live Problems where you live: pests, such as bugs, ants, or mice In the past 12 months, utilities in danger of being shut off: no In past 12 months, lack of transportation kept you from medical appts, meetings, work, or getting things needed for daily living: no In the past 12 mos, have been you worried that your food would run out before you had money to buy more?: never true In the past 12 mos, the food you bought just didn't last and you didn't have money to buy more?: never true Smoking Status: Never smoker Do you use any of these nicotine containing products: None Second hand tobacco smoke exposure: No How often does anyone, including family, friends and others, physically hurt you: never How often does anyone, including family, friends and others, insult or talk down to you: never How often does anyone, including family, friends and others, threaten you with harm: never How often does anyone, including family, friends and others, scream or curse at you: never Health Related Social Needs: Inadequate housing (Z59.1) Exam Const: Vital Signs, click to edit/add: Vital Signs - 24 hr 05/22/25 22:07 Temperature 98.0 F Pulse Rate [Left P ulse Oximeter] 90 Respiratory Rate 20 Blood Pressure [Ri ght Upper Arm] 189/90 H Pulse Oximetry 92 Oxygen Delivery Me thod Room Air Edwige is an 85-year-old female that is alert, interactive, no apparent distress. She has a thicker skin tear on her right mid outer calf. It is semi circular. Probably about 6 cm in length. There is some mild oozing of blood but no devin bleeding. The flap is lifted, it is just into the subcutaneous tissue. Skin flap does seem like it has enough sickness to attempt suturing. They understand that if the skin is ripping and not holding, will have to treat this as a skin tear. She does agree to try. Procedure note: 10 mL of 1% plain lidocaine was drawn up and used to anesthetize the wound locally. Standard sterile technique was observed. I flushed the wound with sterile saline. An initial central vertical mattress suture was placed, this did hold. Subsequent 11 simple interrupted sutures around this were placed with good wound and skin approximation. Patient tolerated this well, no bleeding and minimal blood loss during the procedure. Asked nursing staff to apply bacitracin and a bandage. Documenting provider has reviewed patient's vital signs: yes Course Vital Signs Vital signs: Initial Vital Signs Temperature 98.0 F 05/22/25 22:07 Temperature Source Temporal Artery Scan 05/22/25 22:07 Pulse Rate 90 05/22/25 22:07 Pulse Rhythm Regular 05/22/25 22:07 Respiratory Rate 20 05/22/25 22:07 Blood Pressure 189/90 H 05/22/25 22:07 Blood Pressure Mean 123 H 05/22/25 22:07 Blood Pressure Position Sitting 05/22/25 22:07 Pulse Oximetry 92 05/22/25 22:07 Oxygen Delivery Method Room Air 05/22/25 22:07 Vital Signs Temperature 98.0 F 05/22/25 22:07 Pulse Rate 90 05/22/25 22:07 Respiratory Rate 20 05/22/25 22:07 Blood Pressure 189/90 H 05/22/25 22:07 Pulse Oximetry 92 05/22/25 22:07 Oxygen Delivery Method Room Air 05/22/25 22:07 Temperature 98.0 F 05/22/25 22:07 Pulse Rate 90 05/22/25 22:07 Respiratory Rate 20 05/22/25 22:07 Blood Pressure 189/90 H 05/22/25 22:07 Pulse Oximetry 92 05/22/25 22:07 Oxygen Delivery Method Room Air 05/22/25 22:07 Discharge Plan Discharge Clinical Impression: Laceration of lower leg, right Qualifiers: Encounter type: initial encounter Qualified Code(s): S81.811A - Laceration without foreign body, right lower leg, initial encounter Patient Disposition: Home, Self-Care Condition: Stable Instructions: Care For Your Stitches (ED), Laceration (ED) Additional Instructions: May shower but gently pat the wound dry and allow to air dry for at least 10-15 minutes. Then use bacitracin and bandages as needed to keep the wound clean and dry, particularly when you are out in public. Be careful with this wound, the skin is thin on the flap and certainly could repeat even if there are sutures. Need to have the leg re-evaluated in about 10 days to assess the wound for suture removal. If you develop concerns for infection, please seek re-evaluation. Elevating the leg the next couple days will help with healing and decrease swelling. If you have discomfort, can use Tylenol, follow bottle directions for dosing. Activity Level: Activity as Tolerated Prescriptions: No Action aspirin 81 mg capsule 81 mg PO QDAY Adult 50 Plus Probiotic 4 billion cell capsule 4,000 mmu cells PO QDAY Rx Instructions: administer with a meal PreserVision AREDS 2,148 mcg-113 mg-45 mg-17.4mg tablet 1 tab PO DAILY Rx Instructions: administer with AM and PM meals diphenhydramine-acetaminophen [Tylenol PM Extra Strength] 25-500 mg tablet 1 tab PO QHS PRN zinc acetate 1 cap PO DAILY lisinopril-hydrochlorothiazide 20-25 mg tablet 1 tab PO QDAY Qty: 90 3RF albuterol sulfate [Ventolin HFA] 90 mcg/actuation HFA aerosol inhaler 1 puff INHALATION Q6-8H PRN Patient Comments: INHALE 1 TO 2 PUFFS BY MOUTH EVERY 4 HOURS NEEDED FOR WHEEZING Dulera 100-5 mcg/actuation HFA aerosol inhaler 2 puff INHALATION BID Patient Comments: INHALE 2 PUFFS BY MOUTH TWICE DAILY. RINSE MOUTH/GARGLE AFTER EACH USE levothyroxine [Synthroid] 137 mcg tablet 137 mcg PO .every other day Qty: 45 3RF Rx Instructions: Pt to alternate taking 125 mcg with 137 mcg every other day levothyroxine [Synthroid] 125 mcg tablet 125 mcg PO .every other day Qty: 45 3RF Rx Instructions: Pt to alternate taking 125 mcg with 137 mcg every other day simvastatin 10 mg tablet 10 mg PO QDAY Qty: 90 3RF Follow Up/Referrals: Catherine Cardenas MD [Primary Care Provider, Internal Medicine] Stand Alone Forms: [employer] Info Instructions
--- OUTSIDE RECORDS SUMMARY | 2025-05-22 22:51 | XMS_ITS | Clinical Summary ---
Author Organization [facility] Address [address] [place] [address] Care Team Providers Care Ranch Rider Name Role Phone Gisela Mclaughlin MD Primary Care Provider [phone] Source Comments You are receiving this document as you are listed as the primary care provider,follow-up provider, or the patient has been referred to you for consultation.This is in compliance with the Medicare and[facility] EHR Incentive Program,which states Providers who transition their patient to another setting of careor provider of care or refers their patient to another provider of care shouldprovide summary care record for each transition of care or referral. [facility] Allergies Active Allergy Reactions Criticality Noted Date Comments Other 05/11/2009 PN: LW Other1: -NKA LW Other2: -NKA Review Contrast Media 05/11/2009 PN: LW CM1: >>> NO CONTRAST ADVERSE REACTION <<< Reaction : Review Food Intolerance 05/11/2009 PN: LW FI1: NKA LW FI2: NKA Medications [facility] CALCIUM CARBONATE OR Take 1 tablet by mouth daily (every 24 hours). LW Addl Instr:Take with food. Indication: Calcium Supplement 9 Active LISINOPRIL-HCTZ (AKA PRINZIDE;ZESTORET IC) 20-25 MG tablet Take 1 Tablet by mouth daily. 9 Active levothyroxine (LEVOXYL) 150 MCG tablet Take 1 Tablet (150 mcg) by mouth daily. 3 9 Active simvastatin (AKA ZOCOR) 10 MG tablet Indications: PN: 3 Active predniSONE (DELTASONE) 10 MG tablet Take 1-4 Tablets (10-40 mg) by mouth daily. 40mg x 4 days, 30mg x 4 days, 20mg x 4 days, 10mg x 4 days. 50 Tablet 3 Active Additional Information Patient not taking.Reported on 11/13/2024 Probiotic Product (SUPER PROBIOTIC OR) 1 Capsule. Active Multiple Vitamins-Minerals (ZINC OR) 2 Tablets as needed. Winter months Active mometasone-formot jeri (DULERA) 100-5 mcg/actuation inhaler Inhale 2 Puffs two times a day. Rinse mouth/gargle after use 3 Each 3 4 Active mometasone-formot jeri (DULERA) 100-5 mcg/actuation inhaler Inhale 2 Puffs two times a day. Rinse mouth/gargle after use 1 Each 11 5 Active VENTOLIN HFA 108 (90 Base) MCG/ACT inhaler Inhale 2 Puffs every 6 hours as needed. 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 21 Tablet 5 Active Active Problems Problem Noted Date Diagnosed Date Pulmonary nodule 01/17/2012 HTN (hypertension) 01/17/2012 COPD, moderate 12/12/2011 Skier's thumb 06/30/2011 [facility] DJD(carpometacarpal dege nerative joint disease), localized primary 06/30/2011 Immunizations Immunization Administration Dates Next Due Flu Vac Preserv Free (3+yrs) 04/30/2009, 05/13/2007,05/30/2005,2003 H1n1 Miv Sanofi 3+ Yr (Injected) 08/20/2009 Influenza IIV3 (Trivalent) F luzone Highdose, 65+ Yrs (50072) 06/18/2018,04/30/2015 Influenza, Unspecified Formulation 06/09,05/25/1998,05/23/1997,1994 Social History Tobacco Use Types Packs/Day Years Used Date Smoking Tobacco: Former Cigarettes Smokeless Tobacco: Never Comments:Quit smoking: Alcohol Use Standard Drinks/Week Comments Yes 0 (1 standard drink = 0.6 oz pur e alcohol) little Comments Unknown Sex and Gender Information Value Date Recorded Sex Assigned at Not on file Legal Sex Female 6:32 PM CDT Gender Identity Not on file Sexual Orientation Not on file Last Filed Vital Signs Vital Sign Reading Time Taken Comments Blood Pressure 136/72 11/13/2024 3:49 PM CDT Pulse 87 11/13/2024 3:49 PM CDT Temperature 36.7 C (98.1 F) 01/20/2025 1:00 PM CDT Respiratory Rate 16 05/13/2009 7:38 AM CDT Oxygen Saturation 95% 11/13/2024 3:49 PM CDT Inhaled Oxygen Concentration - - Weight 90.7 kg (200 lb) 01/20/2025 1:00 PM CDT Height 167.6 cm (5' 6) 01/20/2025 1:00 PM CDT Body Mass Index 32.28 01/20/2025 1:00 PM CDT Plan of Treatment Health Maintenance Due Date Last Done Comments Medicare Annual Wellness Visit 1941 Dexa 2006 RSV Vaccine (1 - 1-dose 75+ series) 02/19/2016 COVID-19 Vaccine ( season) 2025 05/08/2024, 09/05/2023, 05/31/2022, Additional history exists Influenza Vaccine (#1) 2025 , 06/05/2023, 09/19/2022, Additional history exists DTaP/Tdap/Td Vaccine (3 - Tdap) 09/12/2032 09/12/2022, 07/17/2012, 11/25/2005 Pneumococcal Vaccine 50+ Yrs Completed 01/14/2015, 04/13/2006 Zoster/Shingles Vaccine Completed 10/15/19 20, 06/02/2019, 03/01/2010 HepA Vaccine Aged Out No longer eligi ble based on patient's age to complete this topic HepB Vaccine Aged Out No longer eligi ble based on patient's age to complete this topic Hib Vaccine Aged Out No longer eligi ble based on patient's age to complete this topic MCV4 Vaccine Aged Out No longer eligi ble based on patient's age to complete this topic Meningococcal B Vaccine Aged Out No l onger eligible based on patient's age to complete this topic Insurance MEDICARE [facility] MEDICARE SUPPLEMENT MEDICARE BCBS [place] [address] Care Teams Ranch Rider Relationship Specialty Start Date End Date Gisela Mclaughlin MD [address] [place] [id number] PCP - General 11/14/10
--- OUTSIDE RECORDS SUMMARY | 2025-05-22 22:51 | XMS_ITS | Clinical Summary ---
Author Organization [facility] Address [address] [place] [address] Care Team Providers Care Transportation Dispatcher Name Role Phone Catherine Cardenas MD Primary Care Provider [phone] Allergies No known active allergies Medications mometasone-formo terol (DULERA) 100-5 mcg/actuation inhaler Inhale 2 Puffs by mouth 2 times daily. Active simvastatin (ZOCOR) 10 mg tablet Take 10 mg by mouth at bedtime. Active amLODIPine (NORVASC) 5 mg tablet Take 5 mg by mouth once daily. Active cholecalciferol (VITAMIN D3) 5,000 unit capsule Take 5,000 Units by mouth once daily. Active levothyroxine (SYNTHROID) 137 mcg tablet Take 1 tablet by mouth once daily. 0 07/05/2014 Active levothyroxine (SYNTHROID) 137 mcg tablet Take 137 mcg by mouth before breakfast. Active calcium carbonate (OS-VISHAL 500) 500 mg calcium (1,250 mg) tablet Take 1,250 mg by mouth once daily with a meal. Active potassium chloride (K-DUR) 20 mEq Extended-Release tablet Take 1 tablet by mouth 2 times daily with meals. 3 tablet 07/10/2014 10:50 AM LEDGER CLERK 07/10/2014 Active atenolol (TENORMIN) 25 mg tablet Take 1 tablet by mouth once daily. 30 tablet 0 07/10/2014 Active Active Problems Problem Noted Date Diagnosed Date Sensorineural hearing loss, bilateral 04/05/2020 Renal insufficiency 07/02/2014 Abdominal abscess 07/01/2014 Hypertension 07/01/2014 Hypothyroid 07/01/2014 Hyperlipemia 07/01/2014 COPD (chronic obstructive pulmonary disease) Encounters Date Type Department Care Team Description 04/20/2025 Telephone [facility] [address] [place] [address] Pcp, No Hearing Aid (SUPPLY) from Last 3 Months Immunizations Immunization Administration Dates Next Due Influenza, High-dose Inactivated 05/04/2014 Family History Medical History Relation Name Comments Cancer Father brain cancer Relation Name Status Comments Father Social History Tobacco Use Types Packs/Day Years Used Date Smoking Tobacco: Former Smokeless Tobacco: Never Tobacco Cessation:Counseling Given: Yes Alcohol Use Standard Drinks/Week Comments Not Asked 0 (1 standard drink = 0.6 oz pur e alcohol) Comments No Sex and Gender Information Value Date Recorded Sex Assigned at Not on file Legal Sex Female 6:49 AM LEDGER CLERK Gender Identity Not on file Sexual Orientation Not on file Obstetrics History Last Filed Vital Signs Vital Sign Reading Time Taken Comments Blood Pressure 125/72 05/31/2017 9:30 AM CDT tow er Pulse 73 05/31/2017 9:30 AM CDT Temperature 36.7 C (98 F) 07/10/2014 8:00 AM LEDGER CLERK Respiratory Rate 14 07/10/2014 8:00 AM LEDGER CLERK Oxygen Saturation 94% 05/31/2017 9:30 AM CDT Inhaled Oxygen Concentration - - Weight 92.5 kg (204 lb) 05/31/2017 9:30 AM CDT Height 163.8 cm (5' 4.5) 05/31/2017 9:30 AM CDT Body Mass Index 34.48 05/31/2017 9:30 AM CDT Plan of Treatment Health Maintenance Due Date Last Done Comments Tetanus booster 02/19/1951 Depression screening for age 12+ 1953 Pneumococcal series for age 50+ (1 of 2 - PCV) 02/19/1960 Zoster (shingles) series for age 50+ (1 of 2) 1991 DEXA/DXA scan for age 65+ 2006 Medicare Wellness for age 65+ 2006 RSV vaccine for adults or (1 - 1-dose 75+ series) 02/19/2016 BMI (ht and wt on same day) for age 18+ 05/31/2018 05/31/2017 COVID-19 vaccine series (8 - 2024-25 season) 2025 05/08/2024, 09/05/2023, 05/31/2022, Additional history exists Influenza Vaccine (#1) 2025 05/04/2014 Hepatitis B series for 19+ Aged Out N o longer eligible based on patient's age to complete this topic Insurance MEDICARE PART B HB ONLY MEDICARE PART A HB ONLY [facility] MEDICARE [place] ONLY Advance Directives * Full Code (Latest Code Status on File) Date Activated Date Inactivated Comments 07/01/2014 7:42 PM 07/10/2014 2:00 PM Care Teams Transportation Dispatcher Relationship Specialty Start Date End Date Catherine Cardenas MD [address] [place] [id number] PCP - General Internal Medicine 07/24/18
== END 2025-05-22 23:23 | disposition home or self-care (01) ==
PROVIDERS: Emergency Provider Family Medicine; PCP Internal Medicine
DX: S81.811A Laceration without foreign body, right lower leg, initial encounter (principal); W26.9XXA Contact with unspecified sharp object(s), initial encounter
CPT/HCPCS: 12002; 99283

== ENCOUNTER 2025-06-16 14:41 | Outpatient (CLI) | payer MEDICARE, BC, SELFPAY | END 2025-06-16 14:42 | disposition home or self-care (01) | LOC: LKVREF 14:42 | PROVIDERS: PCP Internal Medicine | DX: L03.115 Cellulitis of right lower limb (principal) | CPT/HCPCS: 87070 ==

== ENCOUNTER 2025-06-17 13:59 | Outpatient (CLI) | payer MEDICARE, BC, SELFPAY | END 2025-06-17 14:00 | disposition home or self-care (01) | LOC: WOUND 14:00 | PROVIDERS: PCP Internal Medicine; Visit Provider Surgery | DX: I87.2 Venous insufficiency (chronic) (peripheral) (principal); I89.0 Lymphedema, not elsewhere classified; S81.811S Laceration without foreign body, right lower leg, sequela; Z86.718 Personal history of other venous thrombosis and embolism; Z79.82 Long term (current) use of aspirin; W26.9XXS Contact with unspecified sharp object(s), sequela | CPT/HCPCS: 11042; G0463 ==

== ENCOUNTER 2025-06-24 13:40 | Outpatient (CLI) | payer MEDICARE, BC, SELFPAY | END 2025-06-24 13:41 | disposition home or self-care (01) | LOC: WOUND 13:40 | PROVIDERS: PCP Internal Medicine; Visit Provider Surgery | DX: I87.2 Venous insufficiency (chronic) (peripheral) (principal); I89.0 Lymphedema, not elsewhere classified; S81.811S Laceration without foreign body, right lower leg, sequela; Z86.718 Personal history of other venous thrombosis and embolism; Z79.82 Long term (current) use of aspirin; W26.9XXS Contact with unspecified sharp object(s), sequela | CPT/HCPCS: 11042 ==

== ENCOUNTER 2025-07-01 13:33 | Outpatient (CLI) | payer MEDICARE, BC, SELFPAY | END 2025-07-01 13:34 | disposition home or self-care (01) | LOC: WOUND 13:34 | PROVIDERS: PCP Internal Medicine; Visit Provider Surgery | DX: S81.811A Laceration without foreign body, right lower leg, initial encounter (principal); W26.8XXA Contact with other sharp object(s), not elsewhere classified, initial encounter; I87.2 Venous insufficiency (chronic) (peripheral); I89.0 Lymphedema, not elsewhere classified; R73.03 Prediabetes; J44.9 Chronic obstructive pulmonary disease, unspecified | CPT/HCPCS: 11042 ==

== ENCOUNTER 2025-07-08 13:40 | Outpatient (CLI) | payer MEDICARE, BC, SELFPAY | END 2025-07-08 13:41 | disposition home or self-care (01) | LOC: WOUND 13:40 | PROVIDERS: PCP Internal Medicine; Visit Provider Surgery | DX: S81.811A Laceration without foreign body, right lower leg, initial encounter (principal); W26.8XXA Contact with other sharp object(s), not elsewhere classified, initial encounter; I87.2 Venous insufficiency (chronic) (peripheral); I89.0 Lymphedema, not elsewhere classified; R73.03 Prediabetes; J44.9 Chronic obstructive pulmonary disease, unspecified | CPT/HCPCS: 11042 ==

== ENCOUNTER 2025-07-15 13:43 | Outpatient (CLI) | payer MEDICARE, BC, SELFPAY | END 2025-07-15 13:44 | disposition home or self-care (01) | LOC: WOUND 13:44 | PROVIDERS: PCP Internal Medicine; Visit Provider Surgery | DX: I87.2 Venous insufficiency (chronic) (peripheral) (principal); I89.0 Lymphedema, not elsewhere classified; L97.212 Non-pressure chronic ulcer of right calf with fat layer exposed; R73.03 Prediabetes | CPT/HCPCS: 11042 ==